=== PATIENT | female | born 1970 | race Hispanic/Latino ===

== ENCOUNTER 2019-12-10 17:31 | Emergency (ER) | payer OTHER | END 2019-12-10 20:38 | disposition short-term general hospital (02) | LOC: ED 17:31 | DX: S06.6X9A Traumatic subarachnoid hemorrhage with loss of consciousness of unspecified duration, initial encounter (principal); S30.0XXA Contusion of lower back and pelvis, initial encounter; R41.82 Altered mental status, unspecified; V80.010A Animal-rider injured by fall from or being thrown from horse in noncollision accident, initial encounter | CPT/HCPCS: 70450; 70486; 71045; 72125; 72170; 80053; 83690; 84703; 85025; 96374; 96375; 99285-25; J1200; J1953; J2405; J2765; J3010; J7030 ==

== ENCOUNTER 2020-11-25 05:55 | Day surgery (SDC) | payer OTHER ==
[~2020-11-25] VITALS: Ht 165.1 cm; Wt 82.3 kg
--- NOTE | ~2020-11-25 | OR ---
[facility] [address] [place], [place] [address] [place] DATE OF OPERATION: 11/25/2020 SURGEON: Arielle Miller DPM [employer]: Mumtaz Lundy DPM PREOPERATIVE DIAGNOSIS: Hallux abductovalgus with bunion deformity, left foot. POSTOPERATIVE DIAGNOSIS: Hallux abductovalgus with bunion deformity, left foot. PROCEDURE: Lapidus bunionectomy or first metatarsal cuneiform fusion. ESTIMATED BLOOD LOSS: Less than 5 mL or minimal. HEMOSTASIS: Ankle tourniquet. NURSE IDENTIFICATION TECHNICIAN: Mumtaz Grissom. ANESTHESIA PROVIDED: Regional popliteal block with MAC. MATERIALS UTILIZED: 3-0 Vicryl, 4-0 Vicryl, surgical jori and a locking plate with screw and compression screw. PROCEDURE IN DETAIL: The patient was brought into the operating room and placed upon the operating table in the supine position. Prior anesthesia was administered to the patient's left popliteal area. The patient was sedated. The patient's left lower extremity was cleaned and draped in usual sterile manner. An Esmarch bandage was then utilized to exsanguinate the patient's left foot and then wrapped around the ankle to act as tourniquet. Attention was then turned to the dorsal aspect of the patient's first metatarsal phalangeal joint where approximately 4 to 5 cm linear incision was performed both parallel to the medial PATIENT NAME: GLENROY SUMMERS OPERATIVE REPORT DATE OF : 72 REPORT #: [id number] PHYSICIAN: ARIELLE MILLER DPM PCP: NO PRIMARY CARE PHYSICIAN REPORT IS CONFIDENTIAL AND NOT TO BE RELEASED WITHOUT AUTHORIZATION [facility] [address] [place], [place] [address] [place] to the tendon of the extensor hallucis lojngus. Incision was then deepened through the subcutaneous tissue with care being taken to identify and retract the vital neurovascular structures. Bleeders were cauterized and ligated as necessary. Dissection continued down with a #64 down to the level of the joint capsule. A linear capsulotomy was performed and the joint capsule was reflected off the medial aspect of the patient's first metatarsal head. A prominent medial eminence was noted in this area along with a tracking groove that ran from inferior to superior. Sagittal saw was then utilized to resect this medial eminence leaving the tracking groove in place. The medial eminence had normal bone density, normal trabecular pattern and normal coloration. Attention was redirected to the first intermetatarsal space via the original skin incision. A sharp and blunt dissection continued down to the level of the fibular sesamoid. Fibular sesamoid was apparent within the intermetatarsal space. The fibular sesamoid along the lateral aspect was resected as well as the abductor hallucis muscle conjoint tendon. Next, the extensor brevis tendon was also identified and resected completing the soft tissue release on the lateral aspect of the foot. First metatarsal head was observed to move into a more corrected position over the sesamoid and the first digit was found to move easily into a rectus position as well. Next, the dorsal incision was extended proximally up to the first cuneiform dissection down to the level of the joint capsule, the base of the first metatarsal was performed. At this time, a joint distractor was applied with K-wire being inserted into the first cuneiform and one at the metatarsal base. The joint was distracted. The articular cartilage was then denuded and removed utilizing a sagittal saw and curette. Slightly more bone was shaved on the lateral and plantar aspects of the adjacent aspect of the joint. After removal of the articular surface, the surfaces were then fenestrated. The area was then flushed with copious amount of sterile normal saline and the joint distractor was removed. The first metatarsal was moved into a more corrected position laterally and lined up appropriately with first cuneiform. K-wire was driven from distal dorsal to plantar proximal across the first metatarsal cuneiform joint area to act as temporary fixation. K-wire was driven for temporary fixation from the first metatarsal to the second metatarsal head area. Next, a template was applied. Sizing was determined and positioning of the plate was also determined. Temporary fixation of the template was placed. A small within the bone was applied for placement of a pocket portion of the plate. Template was removed and a pocket plate with locking screws was applied following standard AO fixation techniques. Upon completion of the placement of the hardware, the first metatarsal was found to be maintained well and correction. Next, it should also be noted that fluoroscopy was utilized to visualize screw placement along with measurements. There was one screw that had to remain short because it ran into the compression screw. Upon completion of the placement of the plate and screws, the joint capsule and deep fascia was reapproximated and coapted utilizing 3-0 Vicryl. Subcutaneous tissue was closed utilizing 4-0 Vicryl was reapproximated and coapted utilizing surgical jori. Postoperative injection consisting of 5 mL of 0.5% ropivacaine and 1 mL of dexamethasone phosphate was then injected about the first metatarsal surgical site area. PATIENT NAME: SUMMERS,GLENROY OPERATIVE REPORT DATE OF : 72 REPORT #: [id number] PHYSICIAN: ARIELLE MILLER DPM PCP: NO PRIMARY CARE PHYSICIAN REPORT IS CONFIDENTIAL AND NOT TO BE RELEASED WITHOUT AUTHORIZATION [address] [place], [place] [address] [place] Surgical site was then dressed with silver foam dressing, cast pad, roll gauze and Coban. The ankle tourniquet was removed. Prompt hyperemic response was noted to all digits of the patient's left foot. The patient was then escorted to the recovery area with vital signs stable, capillary refill time less than 3 seconds. Following a period of postoperative monitoring, the patient was discharged to home with both written and oral instructions. PALLAVI Tesfaye/JUAN /[id number] Copies: ~ PATIENT NAME: GLENROY SUMMERS OPERATIVE REPORT DATE OF : 72 REPORT #: [id number] PHYSICIAN: ARIELLE MILLER DPM PCP: NO PRIMARY CARE PHYSICIAN REPORT IS CONFIDENTIAL AND NOT TO BE RELEASED WITHOUT AUTHORIZATION
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
--- NOTE | 2020-11-25 10:17 | NUR ---
11/25/20 Ann-Marie Hernandez TO PACU, MAINTAINS OWN AIRWAY. FOLLOWS DIRECTIONS. DENIES C/O AT THIS TIME.
== END 2020-11-25 11:07 | disposition home or self-care (01) ==
LOC: DS 05:55
PROVIDERS: ATTEND Podiatrist Foot & Ankle Surgery
PROC: 0SGL04Z Fusion of Left Tarsometatarsal Joint with Internal Fixation Device, Open Approach (ICD-10-PCS; principal; 2020-11-25 06:45)
DX: M20.12 Hallux valgus (acquired), left foot (principal); M21.612 Bunion of left foot; G89.18 Other acute postprocedural pain
CPT/HCPCS: 73620; 73630; J0690; J1100; J2250; J2704; J2795; J7121